=== PATIENT | male | born 1970 | race American Indian/Alaskan Native ===

== ENCOUNTER 2017-06-25 19:31 | Emergency (ER) | payer SELFPAY ==
[2017-06-25] MEDS ORDERED: NACL 0.9% 1000 ML 1,000 ML IV ONE (19:51)
[2017-06-25] MEDS ORDERED: CATAPRES ONE (20:12)
[2017-06-25] MEDS ORDERED: CATAPRES PO ONE (20:15)
[2017-06-25 20:24] LABS: Basophils % (Auto) 0.6 % (0.0-1.8); Eosinophils # (Auto) 0.1 K/mm3 (0.0-0.4); Eosinophils % (Auto) 0.9 % (0.0-4.3); Hematocrit 43.9 % (35.5-45.6); Hemoglobin 14.7 gm/dl (11.8-15.2); Lymphocytes # (Auto) 3.6 K/mm3 (1.2-5.4); Lymphocytes % (Auto) 47.6 % (13.4-35.0); Mean Corpuscular HGB Conc 33 % (32-34); Mean Corpuscular Hemoglobin 30 pg (28-32); Mean Corpuscular Volume 89 fl (84-94); Monocytes # (Auto) 0.4 K/mm3 (0.0-0.8); Monocytes % (Auto) 4.7 % (0.0-7.3); Platelet Count 260 K/mm3 (140-440); Red Blood Count 4.95 M/mm3 (3.65-5.03); Red Cell Distribution Width 13.8 % (13.2-15.2)
[2017-06-25 20:27] LABS: INR 0.91 (0.87-1.13); Partial Thromboplastin Time 29.2 Sec. (24.2-36.6)
[2017-06-25 20:29] LABS: Alanine Aminotransferase 37 units/L (7-56); Albumin 4.3 g/dL (3.9-5); BUN/Creatinine Ratio 14; Blood Urea Nitrogen 14 mg/dL (9-20); Calcium 9.2 mg/dL (8.4-10.2); Hemolysis Index 30; Lipase 32 units/L (13-60)
[2017-06-25 22:19] LABS: Bilirubin,Urine NEG (Negative); Blood,Urine NEG (Negative); Color,Urine Yellow (Yellow); Mucus,Urine FEW /HPF; Protein,Urine <15 mg/dL mg/dL (Negative)
[2017-06-26] MEDS ORDERED: ZOFRAN IV ONE (00:50)
[2017-06-26] MEDS ORDERED: PEPCID IV ONE (00:50)
--- NOTE | 2017-06-26 00:51 | Emergency Department Report ---
ED General Adult HPI - General Chief complaint: GI Bleed Stated complaint: N/V, CHEST PAIN Time Seen by Provider: 06/26/17 00:28 Source: patient, RN notes reviewed Mode of arrival: Ambulatory Limitations: No Limitations - History of Present Illness Initial comments: This is a 46-year-old male. The patient is previously unknown to this provider. He does not have a primary care doctor. He reports a past medical history of hypertension. He thinks he may have a history of bleeding ulcers but has not had an endoscopy or colonoscopy. He presents here with nontraumatic right upper quadrant pain and right flank pain. He reports throwing up blood twice in the past 24 hours. He denies black stool, and he also denies bright red blood per rectum. He denies chest pain or shortness of breath. He denies DVT/pulmonary embolus risk factors. -: Gradual Location: abdomen Radiation: non-radiation Severity scale (0 -10): 0 Quality: aching Consistency: intermittent Improves with: none Worsens with: none Associated Symptoms: nausea/vomiting, other (as per history of present illness) . denies: confusion, chest pain, cough, diaphoresis, fever/chills, headaches, loss of appetite, malaise, rash, seizure, shortness of breath, syncope, weakness - Related Data Previous Rx's Medication Instructions Recorded Last Taken Type Acetaminophen [Tylenol Arthritis] 650 mg PO Q6HR PRN #30 tablet.er 06/26/17 Unknown Rx Dicyclomine [Bentyl] 10 mg PO QID PRN #20 capsule 06/26/17 Unknown Rx Famotidine [Pepcid] 20 mg PO BID #60 tablet 06/26/17 Unknown Rx Ondansetron [Zofran Odt] 4 mg PO Q8HR PRN #20 tab.rapdis 06/26/17 Unknown Rx Allergies Allergy/AdvReac Type Severity Reaction Status Date / Time No Known Allergies Allergy Unverified 06/25/17 19:44 ED Review of Systems ROS: Stated complaint: N/V, CHEST PAIN Other details as noted in HPI Gastrointestinal: abdominal pain, nausea, vomiting, hematemesis. denies: constipation, melena, hematochezia ED Past Medical Hx - Past Medical History Previous Medical History?: Yes Hx Hypertension: Yes Additional medical history: bleeding ulcers - Surgical History Past Surgical History?: Yes Additional Surgical History: shoulder, knee - Social History Smoking Status: Never Smoker Substance Use Type: None - Medications Home Medications: Home Medications Medication Instructions Recorded Confirmed Last Taken Type Acetaminophen [Tylenol Arthritis] 650 mg PO Q6HR PRN #30 tablet.er 06/26/17 Unknown Rx Dicyclomine [Bentyl] 10 mg PO QID PRN #20 capsule 06/26/17 Unknown Rx Famotidine [Pepcid] 20 mg PO BID #60 tablet 06/26/17 Unknown Rx Ondansetron [Zofran Odt] 4 mg PO Q8HR PRN #20 tab.rapdis 06/26/17 Unknown Rx ED Physical Exam - General Limitations: No Limitations General appearance: alert, in no apparent distress - Head Head exam: Present: atraumatic, normocephalic - Eye Eye exam: Present: normal appearance, EOMI. Absent: nystagmus - ENT ENT exam: Present: normal exam, normal orophraynx, mucous membranes moist, normal external ear exam - Neck Neck exam: Present: normal inspection, full ROM - Respiratory Respiratory exam: Present: normal lung sounds bilaterally. Absent: respiratory distress - Cardiovascular Cardiovascular Exam: Present: regular rate, normal rhythm, normal heart sounds. Absent: systolic murmur, diastolic murmur, rubs, gallop - GI/Abdominal GI/Abdominal exam: Present: soft, tenderness (there is right flank tenderness to deep palpation. There is no right upper quadrant tenderness), normal bowel sounds. Absent: distended - Rectal Rectal exam: Present: normal inspection, normal rectal tone, heme (-) stool, other (escorted by nurse Christian). Absent: black stool, bloody stool, fecal impaction, hemorrhoids, mass - Extremities Exam Extremities exam: Present: normal inspection, full ROM, normal capillary refill. Absent: pedal edema, joint swelling, calf tenderness - Back Exam Back exam: Present: normal inspection, full ROM. Absent: tenderness, CVA tenderness (R), paraspinal tenderness, vertebral tenderness - Neurological Exam Neurological exam: Present: alert, oriented X3, CN II-XII intact, other ( Extraocular movements intact. Tongue midline. No facial droop. Facial sensation intact to light touch in the V1, V2, V3 distribution bilaterally. 5 and 5 strength in 4 extremities.. Sensation is intact to light touch in 4 extremities.). Absent: motor sensory deficit - Psychiatric Psychiatric exam: Present: normal affect, normal mood - Skin Skin exam: Present: warm, dry, intact, normal color. Absent: rash ED Course Vital Signs 06/25/17 06/25/17 06/26/17 19:37 22:44 00:51 Temperature 98.1 F 98.1 F Pulse Rate 98 H 79 74 Respiratory 20 20 17 Rate Blood Pressure 171/120 Blood Pressure 145/110 169/112 [Right] O2 Sat by Pulse 94 98 99 Oximetry 06/26/17 06/26/17 02:00 03:00 Temperature Pulse Rate Respiratory Rate Blood Pressure 157/112 136/103 Blood Pressure [Right] O2 Sat by Pulse 98 99 Oximetry - Reevaluation(s) Reevaluation #1: 06/26/17 01:41 Differential diagnosis, including but not limited to: Renal colic, appendicitis , upper GI bleed, Paradise-Moody tear, GERD, gastritis, inflammatory bowel disease, peptic ulcer disease, biliary colic Assessment and plan: 46-year-old male with no pulmonary embolus or DVT risk factors who is low risk by well's criteria who is perc negative with a complaint of vomiting blood. There is no emesis last far. He is guaiac- negative on rectal exam. Blood urea nitrogen is not especially elevated. Very slightly tender in his right flank. CT scan of the abdomen and pelvis and ultrasound are ordered of the right upper quadrant. He will be treated with nausea medication, pain medication. Care is transferred to the overnight doctor , Dr. Abdulaziz Hebert to follow-up on the aforementioned imaging studies. If they are nondiagnostic/unremarkable, patient will be suitable to follow up with outpatient gastroenterology for evaluation. ED Medical Decision Making - Lab Data Result diagrams: 06/25/17 19:56 06/25/17 19:56 Vital Signs 06/25/17 06/25/17 06/26/17 19:37 22:44 00:51 Temperature 98.1 F 98.1 F Pulse Rate 98 H 79 74 Respiratory 20 20 17 Rate Blood Pressure 171/120 Blood Pressure 145/110 169/112 [Right] O2 Sat by Pulse 94 98 99 Oximetry Lab Results 06/25/17 06/25/17 06/25/17 Range/Units 19:56 19:56 19:56 WBC 7.5 (4.5-11.0) K/mm3 RBC 4.95 (3.65-5.03) M/mm3 Hgb 14.7 (11.8-15.2) gm/dl Hct 43.9 (35.5-45.6) % MCV 89 (84-94) fl MCH 30 (28-32) pg MCHC 33 (32-34) % RDW 13.8 (13.2-15.2) % Plt Count 260 (140-440) K/mm3 Lymph % (Auto) 47.6 H (13.4-35.0) % Harvey % (Auto) 4.7 (0.0-7.3) % Eos % (Auto) 0.9 (0.0-4.3) % Baso % (Auto) 0.6 (0.0-1.8) % Lymph # 3.6 (1.2-5.4) K/mm3 Harvey # 0.4 (0.0-0.8) K/mm3 Eos # 0.1 (0.0-0.4) K/mm3 Baso # 0.0 (0.0-0.1) K/mm3 Seg Neutrophils % 46.2 (40.0-70.0) % Seg Neutrophils # 3.5 (1.8-7.7) K/mm3 PT 12.7 (12.2-14.9) Sec. INR 0.91 (0.87-1.13) APTT 29.2 (24.2-36.6) Sec. Sodium 140 (137-145) mmol/L Potassium 3.8 (3.6-5.0) mmol/L Chloride 101.6 (98-107) mmol/L Carbon Dioxide 22 (22-30) mmol/L Anion Gap 20 mmol/L BUN 14 (9-20) mg/dL Creatinine 1.0 (0.8-1.5) mg/dL Estimated GFR > 60 ml/min BUN/Creatinine Ratio 14 % Glucose 123 H (75-100) mg/dL Calcium 9.2 (8.4-10.2) mg/dL Total Bilirubin 0.30 (0.1-1.2) mg/dL AST 30 (5-40) units/L ALT 37 (7-56) units/L Alkaline Phosphatase 84 (35-129) units/L Total Protein 7.6 (6.3-8.2) g/dL Albumin 4.3 (3.9-5) g/dL Albumin/Globulin Ratio 1.3 % Lipase 32 (13-60) units/L Urine Color (Yellow) Urine Turbidity (Clear) Urine pH (5.0-7.0) Ur Specific Rector (1.003-1.030) Urine Protein (Negative) mg/dL Urine Glucose (UA) (Negative) mg/dL Urine Ketones (Negative) mg/dL Urine Blood (Negative) Urine Nitrite (Negative) Urine Bilirubin (Negative) Urine Urobilinogen (<2.0) mg/dL Ur Leukocyte Esterase (Negative) Urine WBC (Auto) (0.0-6.0) /HPF Urine RBC (Auto) (0.0-6.0) /HPF U Epithel Cells (Auto) (0-13.0) /HPF Urine Mucus /HPF Blood Type Antibody Screen 06/25/17 06/25/17 Range/Units 19:56 21:39 WBC (4.5-11.0) K/mm3 RBC (3.65-5.03) M/mm3 Hgb (11.8-15.2) gm/dl Hct (35.5-45.6) % MCV (84-94) fl MCH (28-32) pg MCHC (32-34) % RDW (13.2-15.2) % Plt Count (140-440) K/mm3 Lymph % (Auto) (13.4-35.0) % Harvey % (Auto) (0.0-7.3) % Eos % (Auto) (0.0-4.3) % Baso % (Auto) (0.0-1.8) % Lymph # (1.2-5.4) K/mm3 Harvey # (0.0-0.8) K/mm3 Eos # (0.0-0.4) K/mm3 Baso # (0.0-0.1) K/mm3 Seg Neutrophils % (40.0-70.0) % Seg Neutrophils # (1.8-7.7) K/mm3 PT (12.2-14.9) Sec. INR (0.87-1.13) APTT (24.2-36.6) Sec. Sodium (137-145) mmol/L Potassium (3.6-5.0) mmol/L Chloride (98-107) mmol/L Carbon Dioxide (22-30) mmol/L Anion Gap mmol/L BUN (9-20) mg/dL Creatinine (0.8-1.5) mg/dL Estimated GFR ml/min BUN/Creatinine Ratio % Glucose (75-100) mg/dL Calcium (8.4-10.2) mg/dL Total Bilirubin (0.1-1.2) mg/dL AST (5-40) units/L ALT (7-56) units/L Alkaline Phosphatase (35-129) units/L Total Protein (6.3-8.2) g/dL Albumin (3.9-5) g/dL Albumin/Globulin Ratio % Lipase (13-60) units/L Urine Color Yellow (Yellow) Urine Turbidity Clear (Clear) Urine pH 5.0 (5.0-7.0) Ur Specific Rector 1.023 (1.003-1.030) Urine Protein <15 mg/dl (Negative) mg/dL Urine Glucose (UA) Neg (Negative) mg/dL Urine Ketones Neg (Negative) mg/dL Urine Blood Neg (Negative) Urine Nitrite Neg (Negative) Urine Bilirubin Neg (Negative) Urine Urobilinogen 4.0 (<2.0) mg/dL Ur Leukocyte Esterase Neg (Negative) Urine WBC (Auto) 1.0 (0.0-6.0) /HPF Urine RBC (Auto) 1.0 (0.0-6.0) /HPF U Epithel Cells (Auto) < 1.0 (0-13.0) /HPF Urine Mucus Few /HPF Blood Type B POSITIVE Antibody Screen Negative - EKG Data -: EKG Interpreted by Ma EKG shows normal: sinus rhythm, axis, intervals, QRS complexes, ST-T waves - EKG Data When compared to previous EKG there are: previous EKG unavailable - Radiology Data Radiology results: pending Critical care attestation.: If time is entered above; I have spent that time in minutes in the direct care of this critically ill patient, excluding procedure time. ED Disposition Clinical Impression: History of hematemesis Disposition: TO HOME OR SELFCARE Is pt being admited?: No Does the pt Need Aspirin: No Condition: Good Instructions: Gastrointestinal Bleeding (ED) Additional Instructions: Avoid consumption of Motrin, ibuprofen, Naprosyn, Aleve, alcohol, heavy and spicy foods. Take the medications as needed/directed. Follow up with a sand conditioner machine within the next 2 weeks. Return to the ER right away with new pain, worsened pain, migration of pain, vomiting blood, defecating blood, confusion, inability to speak, inability to breathe. Prescriptions: Acetaminophen [Tylenol Arthritis] 650 mg PO Q6HR PRN #30 tablet.er PRN Reason: Pain Dicyclomine [Bentyl] 10 mg PO QID PRN #20 capsule PRN Reason: Pain Famotidine [Pepcid] 20 mg PO BID #60 tablet Ondansetron [Zofran Odt] 4 mg PO Q8HR PRN #20 tab.rapdis PRN Reason: Nausea Referrals: ARIAS ROCK MD [Primary Care Provider] - 3-5 Days [facility] [Provider Group] - 3-5 Days Forms: Accompanied Note
[2017-06-26] MEDS ORDERED: CARAFATE PO ONE (01:39)
[2017-06-26] MEDS ORDERED: BENTYL PO ONE (01:39)
[2017-06-26] MEDS ORDERED: BENTYL ONE (01:54)
--- NOTE | 2017-06-26 03:08 | Cat Scan Report ---
FINAL REPORT EXAM: CT ABDOMEN PELVIS W CON HISTORY: right sided abd pain n/v TECHNIQUE: Dynamic helical CT scan through the abdomen and pelvis during and again after intravenous injection of iodinated contrast. Images are reconstructed in the sagittal and coronal planes. Oral contrast was not given. PRIORS: Correlation with abdominal ultrasound performed subsequently. FINDINGS: The lung bases are clear. There is diffuse fatty infiltration of liver. There is a 2.5 cm lesion in the inferior right liver consistent with a hemangioma. There is another 1.8 cm mm lesion in the lateral segment of the left lobe of the liver also consistent with hemangioma. These were not identified on the ultrasound. The gallbladder, pancreas, spleen and adrenal glands appear normal. The kidneys appear normal. The pelvic organs appear grossly normal. The stomach appears grossly within normal limits. There are no abnormally dilated loops of bowel or acute inflammatory changes. A normal-appearing appendix is identified. The abdominal aorta has a normal diameter. The bones and subcutaneous soft tissues are unremarkable for age. IMPRESSION: 1. No acute findings in the abdomen/pelvis 2. 2 incidental hemangiomas in the liver
--- NOTE | 2017-06-26 03:12 | Ultrasound Report ---
FINAL REPORT PROCEDURE: US ABDOMEN LIMITED TECHNIQUE: Real-time sonography in multiple planes of the gallbladder fossa and CBD with imaging of the adjacent liver, pancreas, and right kidney was performed with image documentation. CPT 76158 HISTORY: ruq pain COMPARISON: No prior studies are available for comparison. FINDINGS: Liver: Normal size and echotexture with no evidence of cystic or solid mass lesion. Gallbladder: The gallbladder is contracted. There are no stones.. Intrahepatic bile ducts: Normal . Extrahepatic bile ducts: Normal . Pancreas: Normal as visualized with suboptimal depiction of the pancreatic tail. Right kidney: Normal echotexture. No focal renal mass, calculus, or hydronephrosis. Other: No free fluid. IMPRESSION: There is no evidence of cholelithiasis, cholecystitis or biliary ductal dilatation.
[2017-06-26 03:40] VITALS: BP 136/103
== END 2017-06-26 03:41 | disposition home or self-care (01) ==
LOC: ED 19:31
DX: R10.11 Right upper quadrant pain (principal); K92.0 Hematemesis
CPT/HCPCS: 36415; 74177; 76705; 80053; 81001; 82271; 83690; 85025; 85610; 85730; 86850; 86900; 86901; 93005; 93010; 96361; 96374; 96375; 99284; J2405; J7030; Q9967